=== PATIENT | male | born 1980 | race Caucasian/White ===

== ENCOUNTER 2021-04-01 18:25 | Emergency (ER) | payer BC ==
[2021-04-01] MEDS ORDERED: Acetaminophen/HYDROcodone 325-5 MG Tab PO ONE (18:26)
[2021-04-01] MEDS ORDERED: Ofloxacin 0.3% Ophth Soln 5 ML Bottle EARLF ONE (19:02)
--- NOTE | 2021-04-01 19:12 | EDM.PDOC ---
ED HPI GENERAL MEDICAL PROBLEM - General Chief Complaint: ENT Problem Stated Complaint: EAR PAIN Time Seen by Provider: 04/01/21 18:30 Source of Information: Reports: Patient History Limitations: Reports: No Limitations - History of Present Illness INITIAL COMMENTS - FREE TEXT/NARRATIVE: Pt states he was water boarding and then he fell and hit his head on the left side about 4 hrs ago . Initaily he had no pain , bu now he has ear pain and drainage , has blood discharge from the ear . has no fever No ringing in the ears Onset: Today Onset Date: 04/01/21 Duration: Getting Worse left ear Pain Score (Numeric/FACES): 6 - Related Data Allergies Allergy/AdvReac Type Severity Reaction Status Date / Time No Known Allergies Allergy Verified 04/01/21 18:35 Home Meds: Home Meds Acetaminophen/HYDROcodone [[place] 325-5 MG] 1 tab PO Q6H PRN #6 tab 04/01/21 [Rx] Ofloxacin [Floxin 0.3% Otic Soln] 5 drop EARLF BID #1 bottle 04/01/21 [Rx] Past Medical History Psychiatric History: Reports: ADHD, Anxiety Social & Family History - Tobacco Use Tobacco Use Status *Q: Never Tobacco User ED ROS ENT - Review of Systems Review Of Systems: Comprehensive ROS is negative, except as noted in HPI. ED EXAM, ENT - Physical Exam Exam: See Below Exam Limited By: No Limitations General Appearance: Alert, WD/WN, Anxious, Mild Distress (from pain in the ear) Eye Exam: Bilateral Eye: EOMI Ears: Canal Discharge (bloody and serous discharge noted), TM Perforation Nose: Normal Inspection Mouth/Throat: Normal Inspection, Normal Oropharynx Head: Atraumatic, Normocephalic Neck: Supple, Non-Tender Respiratory/Chest: No Respiratory Distress Cardiovascular: Regular Rate, Rhythm GI/Abdominal: Soft, Non-Tender Back: Normal Inspection Extremities: Normal Inspection Neurological: Alert, Oriented, CN II-XII Intact Psychiatric: Normal Affect, Normal Mood Skin: Warm, Dry, Intact Course - Vital Signs Last Recorded V/S: Last Vital Signs Temp 37.0 C 04/01/21 18:25 Pulse 96 04/01/21 18:25 Resp 16 04/01/21 18:25 BP 137/99 H 04/01/21 18:25 Pulse Ox 97 04/01/21 18:25 - Orders/Labs/Meds Meds: Medications Discontinued Medications Generic Name Dose Route Start Last Admin Trade Name Donnie PRN Reason Stop Dose Admin Hydrocodone Bitart/Acetaminophen 1 tab 04/01/21 19:20 Acetaminophen/Hydrocodone 325-5 Mg Tab PO 04/01/21 19:21 ONETIME ONE Ofloxacin 2 ml 04/01/21 19:02 04/01/21 19:13 Ofloxacin 0.3% Ophth Soln 5 Ml Bottle EARLF 04/01/21 19:03 1 drop ONETIME ONE Administration - Re-Assessments/Exams Free Text/Narrative Re-Assessment/Exam: 04/01/21 19:27 pt noted to have fluid from the left ear with blood Wick found and placed in ear with antibiotics drops Departure - Departure Time of Disposition: 19:35 Disposition: Home, Self-Care 01 Clinical Impression: Perforation of left tympanic membrane, Blood in left ear canal, Acute pain of left ear - Discharge Information *PRESCRIPTION DRUG MONITORING PROGRAM REVIEWED*: Not Applicable *COPY OF PRESCRIPTION DRUG MONITORING REPORT IN PATIENT JOVANNY: Not Applicable Prescriptions: Ofloxacin [Floxin 0.3% Otic Soln] 5 drop EARLF BID #1 bottle Instructions: Tympanic Membrane Perforation-SportsMed, Eardrum Rupture, [id number], Eardrum Rupture, Adult Referrals: PCP,None [Primary Care Provider] - Forms: ED Department Discharge Additional Instructions: 1) keep ear wick in ear , Ok to apply ear drops with wick in place , just Lay on right side for 10mins after applying ear drops 2) if pain persists or hearing gets worse , you will need to see ENT : Nydia 3) Follow up with your PCP in 2-3 days for recheck Sepsis Event Note (ED) - Evaluation Sepsis Screening Result: No Definite Risk - Focused Exam Vital Signs: Vital Signs Temp Pulse Resp BP Pulse Ox 04/01/21 18:25 37.0 C 96 16 137/99 H 97
[2021-04-01] MEDS: Acetaminophen/HYDROcodone 325-5 MG Tab PO ONE ×2 (19:28→21:15)
== END 2021-04-01 19:45 | disposition home or self-care (01) ==
LOC: FB.ED 18:25
DX: S09.91XA Unspecified injury of ear, initial encounter (principal); H72.92 Unspecified perforation of tympanic membrane, left ear; W19.XXXA Unspecified fall, initial encounter; Y93.19 Activity, other involving water and watercraft
CPT/HCPCS: 99283; A9270

== ENCOUNTER 2021-05-14 19:42 | Emergency (ER) | payer BC ==
[2021-05-14] MEDS ORDERED: Alum Hydroxide/Mag Hydroxide 30 ML, Lidocaine 2% 15 ML PO ONE ×2 (20:37)
--- NOTE | 2021-05-14 20:50 | EDM.PDOC ---
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 [employer] and has been outside a fair amoiunt 2w ago he had nonspecific tightness in his upper chest that would occur as the day went on and into the evening, felt fine when he got up in the morning cough on occasion did have one occasion at night when he had discomfort and slight nausea has been taking Tums daily which may help a little has had tingling in his LUE tonight and up the back of his neck still with upper substernal discomfort now meds: Adderall x 5-6y, clonidine 0.2 mg bid, Tums prn PCP Lucia Cabezas, has apt in 2d has had COVID vax - Related Data Allergies Allergy/AdvReac Type Severity Reaction Status Date / Time No Known Allergies Allergy Verified 04/01/21 18:35 Home Meds: Home Meds Acetaminophen/HYDROcodone [[place] 325-5 MG] 1 tab PO Q6H PRN #6 tab 04/01/21 [Rx] Ofloxacin [Floxin 0.3% Otic Soln] 5 drop EARLF BID #1 bottle 04/01/21 [Rx] Omeprazole 20 mg PO DAILY #14 capsule. 05/14/21 [Rx] Past Medical History Psychiatric History: Reports: ADHD, Anxiety ED ROS GENERAL - Review of Systems Review Of Systems: See Below Constitutional: Reports: No Symptoms HEENT: Reports: No Symptoms Respiratory: Reports: No Symptoms. Denies: Shortness of Breath Cardiovascular: Reports: Chest Pain Endocrine: Reports: No Symptoms GI/Abdominal: Reports: No Symptoms : Reports: No Symptoms Musculoskeletal: Reports: No Symptoms Skin: Reports: No Symptoms Neurological: Reports: Other (numbness) Psychiatric: Reports: No Symptoms Hematologic/Lymphatic: Reports: No Symptoms Immunologic: Reports: No Symptoms ED EXAM, GENERAL - Physical Exam Exam: See Below Exam Limited By: No Limitations General Appearance: Alert, WD/WN, No Apparent Distress Ears: Normal External Exam, Hearing Grossly Normal Nose: Normal Inspection, Normal Mucosa, No Blood Throat/Mouth: Normal Inspection, Normal Lips, Normal Voice, No Airway Compromise Head: Atraumatic, Normocephalic Neck: Normal Inspection, Supple, Non-Tender, Full Range of Motion. No: Lymphadenopathy (R), Lymphadenopathy (L) Respiratory/Chest: No Respiratory Distress, Lungs Clear, Normal Breath Sounds, No Accessory Muscle Use, Chest Non-Tender Cardiovascular: Regular Rate, Rhythm, No Edema, No Gallop, No JVD, No Murmur, No Rub GI/Abdominal: Normal Bowel Sounds, Soft, Non-Tender, No Organomegaly, No Distention, No Mass Back Exam: Normal Inspection, Full Range of Motion. No: CVA Tenderness (R), CVA Tenderness (L) Extremities: Normal Inspection, Normal Range of Motion, Non-Tender, No Pedal Edema Neurological: Alert, Oriented, CN II-XII Intact, Normal Cognition, No Motor/Sensory Deficits Psychiatric: Normal Affect, Normal Mood Skin Exam: Warm, Dry, Intact, Normal Color, No Rash Lymphatic: No Adenopathy #1 Interpretation EKG Date: 05/14/21 Time: 19:45 Rhythm: NSR Rate (Beats/Min): 72 [place]: Normal P-Wave: Present QRS: Normal ST-T: Normal QT: Normal Comparison: NA - No Prior EKG EKG Interpretation Comments: wnl, no acute/ST/ischemic changes Course - Orders/Labs/Meds Labs: Laboratory Tests 05/14/21 05/14/21 05/14/21 Range/Units 20:45 20:45 20:45 WBC 8.6 (3.2-10.1) x10-3/uL RBC 5.36 (3.90-5.90) x10(6)uL Hgb 15.8 (12.9-17.7) g/dL Hct 45.9 (38.3-50.1) % MCV 85.6 (80.8-98.7) fL MCH 29.4 (27.0-33.3) pg MCHC 34.3 (28.7-35.3) g/dL RDW 12.8 (12.4-15.0) % Plt Count 289 (117-477) x10(3)uL MPV 6.3 L (6.7-11.0) fL Neut % (Auto) 66.1 (40.3-71.8) % Lymph % (Auto) 22.7 (15.8-45.3) % [place] % (Auto) 8.0 (5.5-15.2) % Eos % (Auto) 2.2 (0.1-6.8) % Baso % (Auto) 1.0 (0.3-3.8) % Neut # (Auto) 5.7 (1.7-6.9) x10-3/uL Lymph # (Auto) 2.0 (0.5-4.5) x10-3/uL [place] # (Auto) 0.7 (0.0-1.2) x10-3/uL Eos # (Auto) 0.2 (0.0-0.6) x10-3/uL Baso # (Auto) 0.1 (0.0-0.3) x10-3/uL D-Dimer, Quantitative < 0.19 (0.0-0.59) mg/LFEU Sodium (135-145) mmol/L Potassium (3.5-5.3) mmol/L Chloride (100-110) mmol/L Carbon Dioxide (21-32) mmol/L BUN (7-18) mg/dL Creatinine (0.70-1.30) mg/dL Est Cr Clr Drug Dosing Estimated GFR (MDRD) (>60) BUN/Creatinine Ratio (9-20) Glucose (80-116) mg/dL Calcium (8.6-10.2) mg/dL Total Bilirubin (0.1-1.3) mg/dL AST (5-25) IU/L ALT (12-36) U/L Alkaline Phosphatase (56-112) IU/L Troponin I 4.1 (4.0-60.3) pg/mL C-Reactive Protein (0.5-0.9) mg/dL Total Protein (6.0-8.0) g/dL Albumin (3.5-5.2) g/dL Globulin g/dL Albumin/Globulin Ratio 05/14/21 05/14/21 Range/Units 20:45 20:45 WBC (3.2-10.1) x10-3/uL RBC (3.90-5.90) x10(6)uL Hgb (12.9-17.7) g/dL Hct (38.3-50.1) % MCV (80.8-98.7) fL MCH (27.0-33.3) pg MCHC (28.7-35.3) g/dL RDW (12.4-15.0) % Plt Count (117-477) x10(3)uL MPV (6.7-11.0) fL Neut % (Auto) (40.3-71.8) % Lymph % (Auto) (15.8-45.3) % [place] % (Auto) (5.5-15.2) % Eos % (Auto) (0.1-6.8) % Baso % (Auto) (0.3-3.8) % Neut # (Auto) (1.7-6.9) x10-3/uL Lymph # (Auto) (0.5-4.5) x10-3/uL [place] # (Auto) (0.0-1.2) x10-3/uL Eos # (Auto) (0.0-0.6) x10-3/uL Baso # (Auto) (0.0-0.3) x10-3/uL D-Dimer, Quantitative (0.0-0.59) mg/LFEU Sodium 142 (135-145) mmol/L Potassium 4.2 (3.5-5.3) mmol/L Chloride 104 (100-110) mmol/L Carbon Dioxide 29 (21-32) mmol/L BUN 13 (7-18) mg/dL Creatinine 1.1 (0.70-1.30) mg/dL Est Cr Clr Drug Dosing TNP Estimated GFR (MDRD) > 60 (>60) BUN/Creatinine Ratio 11.8 (9-20) Glucose 102 (80-116) mg/dL Calcium 9.4 (8.6-10.2) mg/dL Total Bilirubin 0.7 (0.1-1.3) mg/dL AST 22 (5-25) IU/L ALT 53 H (12-36) U/L Alkaline Phosphatase 65 (56-112) IU/L Troponin I (4.0-60.3) pg/mL C-Reactive Protein < 0.2 L (0.5-0.9) mg/dL Total Protein 7.0 (6.0-8.0) g/dL Albumin 3.9 (3.5-5.2) g/dL Globulin 3.1 g/dL Albumin/Globulin Ratio 1.3 Meds: Medications Discontinued Medications Generic Name Dose Route Start Last Admin Trade Name Donnie PRN Reason Stop Dose Admin Al Hydroxide/Mg Hydroxide 30 0 ml 05/14/21 20:37 05/14/21 20:54 ml/ Lidocaine HCl 15 ml PO 05/14/21 20:38 45 ml ONETIME ONE Administration - Re-Assessments/Exams Free Text/Narrative Re-Assessment/Exam: 05/14/21 21:33 labs neg, EKG neg pt with good improvement after GI cocktail hx and PE and response to GI cocktail all c/w GERD (and anxiety) Departure - Departure Time of Disposition: 21:34 Disposition: Home, Self-Care 01 Condition: Good Clinical Impression: GERD (gastroesophageal reflux disease), Anxiety - Discharge Information *PRESCRIPTION DRUG MONITORING PROGRAM REVIEWED*: Not Applicable *COPY OF PRESCRIPTION DRUG MONITORING REPORT IN PATIENT JOVANNY: Not Applicable Prescriptions: Omeprazole 20 mg PO DAILY #14 capsule.dr Instructions: Gastroesophageal Reflux Disease, Adult Referrals: PCP,None [Primary Care Provider] - Additional Instructions: To decrease acid production, take omeprazole 20 mg 1 capsule daily for 2 weeks. To coat and protect the esophagus, take liquid antacid 30 ml 2 hours after meals and bedtime for 2 days, then every 4 hours as needed. See Lucia Cabezas in 2 days as scheduled. Call or return to ED as needed.
[2021-05-14] MEDS ORDERED: Pantoprazole 40 MG Tab.CR PO ONE (21:33)
== END 2021-05-14 21:45 | disposition home or self-care (01) ==
LOC: FB.ED 19:42
DX: K21.9 Gastro-esophageal reflux disease without esophagitis (principal); F41.9 Anxiety disorder, unspecified; Z79.899 Other long term (current) drug therapy
CPT/HCPCS: 36415; 80053; 84484; 85025; 85379; 86140; 93005; 99285; A9270

== ENCOUNTER 2021-09-07 07:18 | Day surgery (SDC) | payer BC ==
[~2021-09-07 07:18] MED LIST: Sodium Chloride 0.9% 10 ML Syringe FLUSH PRN
[2021-09-07] MEDS ORDERED: Propofol 200 MG/20 ML SDV IV ONE (07:19)
[2021-09-07] MEDS ORDERED: Lidocaine 2% Viscous Solution 15 ML Cup PO ONE (07:19)
[2021-09-07] MEDS: Lactated Ringers 1,000 ML IV SCH (07:53)
--- NOTE | 2021-09-07 09:03 | PCM.PN ---
- General Info Date of Service: 09/07/21 - Review of Systems Systems Review Comment:: 41 y/o male referred for EGD. He has had symptoms of unexplained chest pressure and occasional dysphagia. He also notes a history of prior cholecystectomy and also prior history of bile duct stent. I have discussed the proposed EGD with the patient. Expectations and instructions are reviewed. He agrees to proceed accepting risks. He denies any recent significant changes to his health status. Recent H and P reviewed and no significant changes are noted. - Patient Data Vitals - Most Recent: Last Vital Signs Temp 97.9 F 09/07/21 07:37 Pulse 78 09/07/21 07:37 Resp 18 09/07/21 07:37 BP 124/95 H 09/07/21 07:37 Pulse Ox 100 09/07/21 07:37 Weight - Most Recent: 199 lb 11.821 oz Med Orders - Current: Current Medications Lactated Ringer's (Ringers, Lactated) 1,000 mls @ 125 mls/hr IV ASDIRECTED JEANINE Last Admin: 09/07/21 07:53 Dose: 125 mls/hr Documented by: Sodium Chloride (Sodium Chloride 0.9% 10 Ml Syringe) 10 ml FLUSH ASDIRECTED PRN PRN Reason: Keep Vein Open Sepsis Event Note - Focused Exam Vital Signs: Vital Signs Temp Pulse Resp BP Pulse Ox 09/07/21 07:37 97.9 F 78 18 124/95 H 100 - Problem List Review Problem List Initiated/Reviewed/Updated: Yes - My Orders Last 24 Hours: My Active Orders 09/07/21 Breakfast Nothing Per Oral Diet [DIET] 09/07/21 07:15 Patient Status [ADT] Routine Patient to Empty Bladder [RC] ASDIRECTED Verify Patient Consent Obtain [RC] ASDIRECTED Lactated Ringers [Ringers, Lactated] 1,000 ml IV ASDIRECTED Sodium Chloride 0.9% [Saline Flush] 10 ml FLUSH ASDIRECTED PRN Peripheral IV Insertion Adult [OM.PC] Routine - Assessment Assessment:: Chest pressure and dysphagia - Plan Plan:: EGD
--- NOTE | 2021-09-07 09:51 | PCM.OPNOTE ---
- General Post-Op/Procedure Note Date of Surgery/Procedure: 09/07/21 Operative Procedure(s): EGD with Biopsy Findings: Normal appearing esophagus, stomach and duodenum Pre Op Diagnosis: Chest pressure. dysphagia Post-Op Diagnosis: Normal upper endoscopy Anesthesia Technique: MAC Primary Surgeon: Yusef Schneider Pathology: Biopsies of Gastric Antrum, and esophagus EBL in mLs: 2 Complications: None Condition: Good
[2021-09-07 10:53] VITALS: BP 118/82; PULSE 77
--- NOTE | 2021-09-07 13:46 | OR ---
DATE OF OPERATION: 09/07/2021 SURGEON: Yusef Schneider MD PREOPERATIVE DIAGNOSES: Chest pressure and dysphagia. POSTOPERATIVE DIAGNOSIS: Normal upper endoscopy. OPERATION PERFORMED: Esophagogastroduodenoscopy with biopsy. INDICATIONS FOR SURGERY: This 41-year-old male has been experiencing unexplained symptoms of pressure in his mid chest and some occasional difficulty swallowing. He is referred for diagnostic upper endoscopy. FINDINGS: Structures viewed during the upper endoscopy including the esophagus, stomach, and duodenum all appeared normal. PROCEDURE: The patient was taken to the procedure room. He was given intravenous sedation and with him in the left lateral decubitus position, the Olympus gastroscope was advanced through a mouth guard into the oral cavity. Under direct visualization, the scope was then advanced through the oropharynx down into the esophagus and then down through the esophagus, stomach, and into the duodenum where examination to the fourth portion was performed. Carefully, the duodenum was fully examined and the scope was then withdrawn back into the stomach. Retroflexed examination of the fundus was performed and the gastric mucosa examined. Random biopsies were taken in the lower stomach to evaluate for the possibility of H pylori. The exam was then continued to the GE junction and esophagus. These areas were again carefully examined. Biopsies of the GE junction as well as random biopsies of the upper esophagus were taken because of the patient's symptoms. After the exam had been completed and with no sign of any complication, the scope was removed and the patient was taken from the procedure room in satisfactory condition. ESTIMATED BLOOD LOSS: 2 mL. COMPLICATIONS: None. PROGNOSIS: Good. /[id number] ORAL/JEANNE
== END 2021-09-07 10:28 | disposition home or self-care (01) ==
LOC: FB.SDS 07:18
PROVIDERS: ATTEND Surgery
DX: K29.50 Unspecified chronic gastritis without bleeding (principal); R13.10 Dysphagia, unspecified; R07.89 Other chest pain; K21.9 Gastro-esophageal reflux disease without esophagitis; Z79.899 Other long term (current) drug therapy; Z91.09 Other allergy status, other than to drugs and biological substances
CPT/HCPCS: 00731-QZ; 00750-QZ; 88305; 88313; 88342; A9270-GY; J2704; J7120